=== PATIENT | male | born 1990 | race Caucasian/White ===

== ENCOUNTER 2020-01-21 09:43 | Emergency (ER) | payer OTHER, SELFPAY ==
[2020-01-21 09:44] VITALS: BP 154/93; PULSE 100; RESP 16; TEMP 36.6; O2SAT 98; BMI 29.8
--- NOTE | 2020-01-21 09:51 | ED.DCSUM_ITS ---
History of Present Illness Chief Complaint: Laceration Informant: Patient Narrative: Patient presents with a laceration to the left little finger along the fat pad. He states that it occurred when he was using an aluminum broom. He states that he does not do tetanus shots and declines vaccination. He is right-handed. This is work-related. Past Medical History Primary Care Physician: [facility] [NON-STAFF] - (in 7 -10 days for suture removal) Smoking Status: Current some day smoker Review of Systems General: Denies: Chills, Fever, Sweats Eyes: Denies: Visual changes - bilaterally, Diplopia ENT: Denies: Rhinorrhea, Sore throat Cardiovascular: Denies: Chest pain, Palpitations Respiratory: Denies: Dyspnea, Cough, Dyspnea on exertion Gastrointestinal: Denies: Abdominal pain, Nausea, Vomiting, Diarrhea, Melena, Hematochezia Genitourinary: Denies: Dysuria, Hematuria, Frequency Musculoskeletal: Denies: Back pain, Extremity Pain Skin: Denies: Rash, Wounds Neurological: Denies: Headache, Weakness, Numbness Physical Exam Vital Signs/Narrative: Vital Signs Temp Pulse Resp BP Pulse Ox 01/21/20 09:44 97.9 F 100 16 154/93 H 98 Inital Vital Signs reviewed: Yes General: Well nourished, Well developed, No Acute Distress Head: Normocephalic, Atraumatic Eyes: Perrl, EOMI ENT: Moist mucous membranes, No rhinorrhea Neck: Supple, Nontender Cardiovascular: Regular rate, Regular rhythm, No murmurs Respiratory: No distress, CTA bilaterally, Chest nontender Abdomen: Soft, Nontender, Nondistended, Normal bowel sounds Back: Nontender, Normal Inspection Extremities: No edema, - - There is a flap laceration over the volar aspect of the fat pad of the left little finger. There is mild bleeding. Skin: Normal color, No rash Neurological: Alert, Oriented x3, Cranial nerves II-XII grossly intact, Normal Strength, Normal Sensation Psychological: Normal affect, Normal Mood Diagnostic/Tx/Re-eval - Medical Decision Making Wound was locally anesthetized using 1% lidocaine. It was washed with Shur- Clens and explored. Total length of the flap is about 2 cm. It was closed using a total of 4 simple interrupted 5-0 Ethilon sutures. Wound was dressed. Stitches will need to be removed in 7 to 10 days. Return instructions given. Home care understood. Again patient does not wish tetanus vaccination. ED Disposition - Plan for ED Patient: Disposition: Home or Assisted Living Diagnosis: Laceration of finger Instructions: LACERATION, Hand Referrals: [facility] [NON-STAFF] - (in 7 -10 days for suture removal)
== END 2020-01-21 10:56 | disposition home or self-care (01) ==
LOC: ED 10:05
PROVIDERS: Emergency Provider Emergency Medicine
DX: S61.217A Laceration without foreign body of left little finger without damage to nail, initial encounter (principal); W26.8XXA Contact with other sharp object(s), not elsewhere classified, initial encounter; Y93.9 Activity, unspecified; Y92.9 Unspecified place or not applicable; F17.200 Nicotine dependence, unspecified, uncomplicated
CPT/HCPCS: 12001; 99283